=== PATIENT | male | born 1955 | race Caucasian/White ===

== ENCOUNTER → 2017-09-13 | Day surgery (SDC) | payer OTHER ==
[~2017-09-13] MED LIST: ACUPRIL PO; CATAPRES0.3 M1 PO; GABAPENTIN800 MG PO; NORVASC10 MG PO; PLAVIX75 MG PO; SINGULAIR10 MG PO; TAMS0.4C PO; TEGRETOL XR200 MG PO; ZANTAC300 MG PO
== END | disposition home or self-care (01) ==
LOC: EDSTATUS 08-24 13:15 → ADM 08-24 13:15 → CIR.AMB 08-30 13:15
DX: S32.018A Other fracture of first lumbar vertebra, initial encounter for closed fracture (principal); S32.048A Other fracture of fourth lumbar vertebra, initial encounter for closed fracture